=== PATIENT | female | born 1995 | race Hispanic/Latino ===

== ENCOUNTER 2025-07-25 19:00 | Inpatient (IN) | payer MEDICAID, OTHER ==
[2025-07-25] MEDS ORDERED: Tranexamic Acid 1,000 MG/10 ML VIAL IVP PRN (20:57)
[2025-07-25] MEDS ORDERED: Ibuprofen 800 MG TAB PO PRN (20:57)
[2025-07-25] MEDS ORDERED: Carboprost 250 MCG/ML AMP IM PRN (20:57)
[2025-07-25] MEDS ORDERED: Diphenoxylate HCl/Atropine Tablet PO PRN ×2 (20:57)
[2025-07-25] MEDS ORDERED: hydrALAZINE 20 MG/ML VIAL SLOW IVP PRN (20:57)
[2025-07-25] MEDS ORDERED: Ondansetron PF 4 MG/2 ML Vial IVP PRN (20:57)
[2025-07-25] MEDS ORDERED: Lidocaine 1% (PF) 30 ML VIAL SC PRN (20:57)
[2025-07-25] MEDS ORDERED: Methylergonovine 0.2 MG/ML VIAL IM PRN (20:57)
[2025-07-25] MEDS ORDERED: Oxytocin 30 units/NS 500 ML 500 ML IV SCH ×3 (21:00)
[2025-07-25 21:18] LABS: Hematocrit 36.4 % (34.9-44.5); Hemoglobin 12.2 g/dL (12.0-15.5); Mean Corpuscular Hemoglobin 29.8 pg (27.0-33.0); Mean Corpuscular Volume 89.0 fL (81.6-98.3); Platelet Count 127 10x3/uL (150-450); Red Blood Cell (RBC) Count 4.09 10x6/uL (3.90-5.03); White Blood Cell (WBC) Count 8.90 10x3/uL (3.5-10.5)
[2025-07-25 21:27] VITALS: BMI 34.2
[2025-07-25 21:34] LABS: Glucose 82 mg/dL (70-105)
[2025-07-25] MEDS ORDERED: Famotidine/PF 20 mg/2ml Vial SLOW IVP PRN (22:24)
[2025-07-25] MEDS ORDERED: Bicitra 30 ML UDCUP PO PRN (22:24)
[2025-07-26 00:03] LABS: Hep B Surf Ag - L&D Non-Reactive S/CO (NonReactive)
[2025-07-26 00:16] LABS: Syphilis Antibody Index 0.04 S/CO (<1.00 Non-Reactive)
[2025-07-26] MEDS ORDERED: HYDROmorphone 0.5 MG/0.5 ML SYRINGE SLOW IVP PRN (06:43)
[2025-07-26] MEDS ORDERED: Ondansetron PF 4 MG/2 ML Vial IVP PRN ×3 (06:43→11:39)
[2025-07-26] MEDS ORDERED: Meperidine HCl/PF 25 MG (1 mL) VIAL SLOW IVP PRN (06:43)
[2025-07-26] MEDS ORDERED: Ketorolac Tromethamine 30 MG (1 mL) VIAL IVP SCH (06:45)
[2025-07-26] MEDS ORDERED: hydrALAZINE 20 MG/ML VIAL SLOW IVP PRN (11:39)
[2025-07-26] MEDS ORDERED: Acetaminophen 325 MG TAB PO PRN (11:39)
[2025-07-26] MEDS ORDERED: Methylergonovine 0.2 MG/ML VIAL IM PRN (11:39)
[2025-07-26] MEDS ORDERED: Lanolin Ointment 7 GM TUBE TOP PRN (11:39)
[2025-07-26] MEDS ORDERED: Oxytocin 30 units/NS 500 ML 500 ML IV SCH (11:45)
[2025-07-26] MEDS: Ketorolac Tromethamine 30 MG (1 mL) VIAL IVP PRN (14:27)
[2025-07-26] MEDS: diphenhydrAMINE 50 MG/ML VIAL IVP PRN (14:28)
[2025-07-26] MEDS: Ondansetron PF 4 MG/2 ML Vial ONE (14:34)
[2025-07-26] MEDS: CEFAZOLIN 2 GM VIAL ONE (16:20)
[2025-07-26] MEDS: Oxytocin 10 UNITS/ML VIAL ONE (16:20)
[2025-07-26] MEDS: Boostrix 0.5 ML (Tdap) VIAL (>/=7 yrs of age) IM ONE (16:21)
[2025-07-26] MEDS: Erythromycin Base 0.5% Oint 1 GM TUBE ONE (16:36)
[2025-07-26] MEDS: Hepatitis B Vaccine 10 MCG/0.5 ML SYR ONE (16:36)
[2025-07-26] MEDS ORDERED: HYDROcodone/Acetaminophen 5/325 mg Tablet PO PRN (18:46)
[2025-07-26] MEDS: Ferrous Sulfate 325 MG TAB PO SCH (22:16)
[2025-07-27] MEDS: HYDROcodone/Acetaminophen 5/325 mg Tablet PO PRN (05:13)
[2025-07-27 06:22] LABS: Platelet Count 117 10x3/uL (150-450)
[2025-07-27 06:23] LABS: Hematocrit 31.0 % (34.9-44.5); Hemoglobin 10.3 g/dL (12.0-15.5); Mean Corpuscular Hemoglobin 30.0 pg (27.0-33.0); Mean Corpuscular Volume 90.4 fL (81.6-98.3); Red Blood Cell (RBC) Count 3.43 10x6/uL (3.90-5.03); White Blood Cell (WBC) Count 9.51 10x3/uL (3.5-10.5)
[2025-07-27] MEDS ORDERED: Famotidine 40 MG (4 mL) VIAL SLOW IVP SCH (09:00)
[2025-07-27] MEDS: Simethicone Chewable 80 MG TAB PO PRN (09:36)
[2025-07-27] MEDS: Famotidine/PF 20 mg/2ml Vial SLOW IVP SCH (09:41)
[2025-07-27 09:42] LABS: ALT (SGPT) 10 U/L (Less than 34); AST (SGOT) 24 U/L (11-34); Albumin 2.6 g/dL (3.1-4.5); Alkaline Phosphatase 126 U/L (40-110); Anion Gap 13 mmol/L (10-20); BUN (Urea Nitrogen) 8 mg/dL (7.0-18.7); Bilirubin, Total 0.3 mg/dL (0.3-1.2); Calc. Creatinine Clearance 139 mL/min (70-130); Calcium 9.1 mg/dL (7.8-10.44); Carbon Dioxide 26 mmol/L (22-29); Chloride 106 mmol/L (98-107); Globulin 3.0 g/dL (2.4-3.5); Glucose 94 mg/dL (70-105); Magnesium 1.6 mg/dL (1.6-2.6); Potassium 4.9 mmol/L (3.5-5.1); Sodium 140 mmol/L (136-145)
[2025-07-27 09:45] LABS: Troponin I Less than 0.010 ng/mL (< 0.028)
[2025-07-27] MEDS: Ibuprofen 800 MG TAB PO SCH (14:20)
[2025-07-27 17:11] VITALS: TEMP 98.1
[2025-07-28 22:40] VITALS: BP 113/62
== END 2025-07-28 13:31 | disposition home or self-care (01) | DRG 788 ==
LOC: CSHLD 20:12 → CSHPP 07-26 14:46
PROVIDERS: ADMIT Family Medicine; ATTEND Family Medicine
PROC: 10D00Z1 Extraction of Products of Conception, Low, Open Approach (ICD-10-PCS; principal; 2025-07-26)
DX: O24.424 Gestational diabetes mellitus in childbirth, insulin controlled (principal); Z37.0 Single live birth; Z3A.38 38 weeks gestation of pregnancy; Z79.84 Long term (current) use of oral hypoglycemic drugs
CPT/HCPCS: 36415; 51702; 80053; 82947; 82951; 83735; 84484; 85027; 86780; 86850; 86900; 86901; 87340; 93005; 93010; J1200; J1885; J2274; J2590